=== PATIENT | female | born 1990 | race Asian ===

== ENCOUNTER 2017-08-28 22:17 | Emergency (ER) | payer BC ==
[~2017-08-28] VITALS: Ht 165.1 cm; Wt 68.0 kg
[2017-08-29] MEDS ORDERED: KETOROLAC 30MG/ML VIAL IV STA (00:36)
[2017-08-29] MEDS ORDERED: SODIUM CHLORIDE 0.9% 1,000 ML IV ONE (00:36)
[2017-08-29 01:25] LABS: CHLORIDE 111 mEq/L (98-107)
[2017-08-29 01:26] LABS: BASOPHILS % 0.3 % (0.0-2.0); EOSINOPHILS % 0.2 % (0.0-5.0); HEMATOCRIT. 39.3 % (36.0-48.0); LYMPHOCYTES % 10.9 % (20.0-50.0); MEAN CORPUSCULAR HEMOGLOBIN 31.9 pg (28.0-32.0); MEAN CORPUSCULAR VOLUME 89.5 fL (81.0-99.0); MEAN PLATELET VOLUME 8.5 fl (7.4-10.4); MONOCYTES % 4.7 % (2.0-8.0); NEUTROPHILS % 83.9 % (40.0-76.0); PLATELET 237 x1000/uL (130-400); RED BLOOD CELL COUNT 4.39 mill/uL (4.2-5.4)
[2017-08-29 01:28] LABS: HCG SCREEN NEGATIVE
[2017-08-29] MEDS ORDERED: HYDROCODONE/APAP 7.5/325MG 1 TAB TABLET PO ONE (03:30)
[2017-08-29 04:27] VITALS: BP 97/59
== END 2017-08-29 04:30 | disposition home or self-care (01) ==
LOC: ER 22:17
DX: S30.0XXA Contusion of lower back and pelvis, initial encounter (principal); M25.559 Pain in unspecified hip; F10.10 Alcohol abuse, uncomplicated; Y90.9 Presence of alcohol in blood, level not specified; W10.8XXA Fall (on) (from) other stairs and steps, initial encounter; Y93.89 Activity, other specified; Y92.018 Other place in single-family (private) house as the place of occurrence of the external cause
CPT/HCPCS: 36415; 72100; 73522; 80053; 84703; 85025; 96361; 96374; 99285; J1885; J7030; Z7610